=== PATIENT | male | born 1990 | race Two or more races ===

== ENCOUNTER 2017-01-15 04:08 | Emergency (ER) | payer OTHER ==
[~2017-01-15] VITALS: Ht 170.2 cm; Wt 56.7 kg
[2017-01-15] MEDS: LIDOCAINE VISCUS 2% 15 ML UDC MM ONE (05:30)
[2017-01-15] MEDS: MAG HYDROX/AL HYDROX/SIMETH 30 ML LIQUID UDC PO ONE (05:30)
[2017-01-15] MEDS ORDERED: MAG HYDROX/AL HYDROX/SIMETH 30 ML LIQUID UDC ONE (05:39)
[2017-01-15] MEDS ORDERED: LIDOCAINE VISCUS 2% 15 ML UDC ONE (05:40)
--- NOTE | 2017-01-15 06:01 | NUR ---
Patient discharged to home in stable conditon. Written and verbal after care instructions given. Patient verbalizes understanding of instructions.
== END 2017-01-15 06:01 | disposition home or self-care (01) ==
LOC: ER 04:20
DX: R07.89 Other chest pain (principal); F17.200 Nicotine dependence, unspecified, uncomplicated
CPT/HCPCS: 93005; A4663